=== PATIENT | female | born 1935 | race Caucasian/White ===

== ENCOUNTER 2020-10-20 16:25 | Emergency (ER) | payer OTHER ==
[~2020-10-20] VITALS: Ht 167.6 cm; Wt 78.0 kg
--- NOTE | 2020-10-20 16:48 | NUR ---
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
--- NOTE | 2020-10-20 17:08 | NUR ---
PT TO ROOM 11 W/ C/O HEAD INJURY HAPPENED LAST NIGHT. PT WAS WALKING INTO RESTROOM AND FELL AND HIT HER HEAD. PT IS CURRENTLY ON COUMADIN FOR HX DVT'S. PT ALSO HIT HER R THIGH ON WALKER. ERP DR. TOVAR AWARE. PT HAS FULL ROM OF R LEG W/ NO DEFORMITIES. LARGE BRUISE TO SACRUM AND R THIGH. PT RESTING ON GURNEY. NADN. MONITORS APPLIED. VSS. WARM BLANKET PROVIDED. ERP DR. TOVAR AT BEDSIDE FOR EVAL.
[2020-10-20 17:14] LABS: BASOPHILS % (AUTO) 1 % (0-1); EOSINOPHILS % (AUTO) 2 % (1-7); LYMPHOCYTES % (AUTO) 17 % (22-44); MD NO; MEAN CORPUSCULAR HEMOGLOBIN 32.8 pg (27.0-34.8); MEAN CORPUSCULAR HGB CONC 33.8 g/dL (32.4-35.8); MEAN PLATELET VOLUME 10.6 fL (7.4-10.4); MONOCYTES % (AUTO) 9 % (2-9); NEUTROPHILS % (AUTO) 72 % (42-75); PLATELET COUNT 209 x10^3/uL (130-400); RED BLOOD COUNT 4.48 x10^6/uL (3.82-5.3); RED CELL DISTRIBUTION WIDTH 14.3 % (9.6-15.2)
[2020-10-20 17:24] LABS: ALBUMIN 3.3 g/dL (3.4-5.0); ANION GAP 3 mmol/L (5-15); CALCIUM 8.8 mg/dL (8.5-10.1); CHLORIDE 114 mmol/L (98-107); CREATININE 0.86 mg/dL (0.55-1.02); INTERNATIONAL NORMALIZED RATIO 1.93 (0.93-1.1); PROTHROMBIN TIME 20.4 Seconds (9.6-11.5)
--- NOTE | 2020-10-20 17:33 | NUR ---
PT RESTING ON GURNEY. NADN. TURCIOS.
[2020-10-20 17:41] LABS: MICROSCOPIC AUTO
--- NOTE | 2020-10-20 18:30 | NUR ---
PT CHART REVIEWED AND PLACED FOR RECHECK.
[2020-10-20 18:38] VITALS: BP 163/69
--- NOTE | 2020-10-20 18:38 | NUR ---
PT RESTING ON GURNEY. NADN. TURCIOS.
[2020-10-20] MEDS ORDERED: CEFDINIR 300 MG CAPSULE ONE (18:39)
[2020-10-20] MEDS ORDERED: CEFDINIR 300 MG CAPSULE PO/NG ONE (19:00)
== END 2020-10-20 19:03 | disposition home or self-care (01) ==
LOC: ED 16:55
DX: S09.90XA Unspecified injury of head, initial encounter (principal); N30.00 Acute cystitis without hematuria; M54.2 Cervicalgia; W18.30XA Fall on same level, unspecified, initial encounter; Y93.89 Activity, other specified; Y92.009 Unspecified place in unspecified non-institutional (private) residence as the place of occurrence of the external cause; Y99.8 Other external cause status
CPT/HCPCS: 36415; 70450; 72125; 80048; 81001; 82040; 85025; 85610; 87077; 87086; 99285